=== PATIENT | female | born 1975 | race Native Hawaiian/Other Pacific Islander ===

== ENCOUNTER → 2016-10-17 | Outpatient (CLI) | payer OTHER ==
--- NOTE | 2016-10-17 16:06 | REPMRS ---
Patient History The patient states she had a clinical breast exam in September 2016.No known family history of cancer. Digital Mammo Screening Bilat: October 17, 2016 - Exam #: [id number] Bilateral CC and MLO view(s) were taken. Technologist: April Marie Technologist FINDINGS: The breast tissue is heterogeneously dense. This may lower the sensitivity of mammography. Baseline mammogram. Implant included and displaced views provided for all four projections. There is a moderate amount of residual fibroglandular tissue which is fairly symmetric. There is no dominant mass, architectural distortion, or clustered microcalcification typical of malignancy. There are scattered, small, benign calcifications of doubtful clinical significance. Scattered lymph nodes are seen in the axillae. ASSESSMENT: BI-RADS/ACR category 2 mammogram. Benign finding(s). Recommendation Routine screening mammogram in 1 year (for women over age 40). This mammogram was interpreted with the aid of an FDA-approved computer-aided dectection system. A. Negative x-ray reports should not delay biopsy if a dominant or clinically suspicious mass is present. B. Four to eight percent of cancers are not identified by mammography. C. Adenosis and dense breast may obscure an underlying neoplasm. Electronically Signed By: Gian Sen MD 10/17/16 0191
== END ==
LOC: M RAD 13:51
PROVIDERS: ATTEND Family Medicine
DX: Z12.31 Encounter for screening mammogram for malignant neoplasm of breast (principal); D24.9 Benign neoplasm of unspecified breast

== ENCOUNTER → 2016-12-13 | Outpatient (CLI) | payer OTHER ==
--- NOTE | 2016-12-13 15:33 | REP ---
HYSTEROSONOGRAPHY: History: Infertility. Findings: Pre-procedure transvaginal sonography demonstrates normal size uterus with dimensions of 9.2 x 4.7 x 5.6 cm. Endometrial echo is 0.7 cm thick and unremarkable. Normal ovaries are seen. Right ovary measures 2.8 x 2.2 x 1.8 cm. Left ovary measures 2.5 x 0.9 x 2.5 cm. Resistive index is normal in the right ovary at 0.63. Normal Doppler flow is seen in the left ovary. Hysterosonography is performed after the endometrium is cannulated by the attending professor of physical education Dr. Smith. During saline injection, a linear echogenic focus is seen in the fundus of the endometrium consistent with synechia. No other abnormality. Impression: Linear echogenic focus spans the endometrium on Hysterosonography images consistent with endometrial synechia. Signed by Gene Bynum MD 12/13/2016 03:50 P
== END ==
LOC: M RADPRO 11:51
PROVIDERS: ATTEND Obstetrics & Gynecology
DX: N97.9 Female infertility, unspecified (principal)

== ENCOUNTER 2017-04-23 11:48 | Inpatient (IN) | payer OTHER ==
[~2017-04-23] VITALS: Ht 154.9 cm; Wt 72.5 kg
[2017-04-23] MEDS ORDERED: LUNE1TAB5 PO (11:56)
[2017-04-23] MEDS ORDERED: TOPA100T12 PO (11:56)
[2017-04-23] MEDS ORDERED: LEXA1TAB2 PO (11:56)
[2017-04-23] MEDS ORDERED: ADDE20CA3 PO (11:56)
[2017-04-23] MEDS ORDERED: FLON1SPR (16:10)
[2017-04-23] MEDS ORDERED: ADDE1TAB14 PO (16:10)
[2017-04-23] MEDS ORDERED: LUNE2TAB23 PO (16:10)
[2017-04-23] MEDS ORDERED: PREG50CA PO (16:10)
[2017-04-23] MEDS ORDERED: CELE100C PO (16:10)
[2017-04-23] MEDS ORDERED: CETI10TA PO (16:10)
[2017-04-23] MEDS ORDERED: ALBU17IN INH (16:18)
[2017-04-23] MEDS ORDERED: ESZO1TAB3 PO (16:18)
[2017-04-23 17:26] VITALS: BP 120/77
[2017-04-23] MEDS ORDERED: MAALOX 30 ML SUSP *UDC PO PRN (19:30)
[2017-04-23] MEDS ORDERED: ALBUTEROL 90 MCG/ACT 8GM HFA INHALER INH PRN (19:30)
[2017-04-23] MEDS ORDERED: ACETAMINOPHEN TAB 650MG DOSE (2X325MG) PO PRN (19:30)
[2017-04-23] MEDS ORDERED: MOM 30ML SUSPENSION UDC PO PRN (19:30)
[2017-04-23] MEDS: TOPIRAMATE (TopAMAX) 100 MG TAB PO SCH (20:17)
[2017-04-23] MEDS: FLUTICASONE PROP 0.05% NASAL SPRAY 16 GM (FLONASE) SCH (21:20)
[2017-04-23] MEDS: traZODone 50 MG TAB PO PRN (21:20)
[2017-04-23] MEDS: PREGABALIN 50 MG CAP (LYRICA) PO SCH (21:20)
[2017-04-24 06:28] VITALS: BP 97/54
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
[2017-04-24] MEDS: ADDERALL 5 MG TAB PO SCH (09:00)
[2017-04-24] MEDS: CelecoXIB (CeleBREX) 100 MG CAP PO SCH (09:56)
[2017-04-24] MEDS: PREGABALIN 50 MG CAP (LYRICA) PO SCH ×3 (09:56→21:22)
[2017-04-24] MEDS: CETIRIZINE (ZyrTEC) 10 MG TAB PO SCH (09:56)
[2017-04-24] MEDS: ESCITALOPRAM OXALATE 10 MG TAB (LEXAPRO) PO SCH (09:56)
[2017-04-24] MEDS: FLUTICASONE PROP 0.05% NASAL SPRAY 16 GM (FLONASE) SCH ×2 (09:56→21:22)
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
[2017-04-24 18:00] VITALS: BP 90/60
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
[2017-04-24] MEDS: traZODone 50 MG TAB PO PRN (21:22)
[2017-04-24] MEDS: TOPIRAMATE (TopAMAX) 100 MG TAB PO SCH (21:22)
[2017-04-25 06:38] VITALS: BP 99/58
[2017-04-25] MEDS: FLUTICASONE PROP 0.05% NASAL SPRAY 16 GM (FLONASE) SCH ×2 (08:00→21:55)
[2017-04-25] MEDS: ADDERALL 5 MG TAB PO SCH (08:00)
[2017-04-25] MEDS: ESCITALOPRAM OXALATE 10 MG TAB (LEXAPRO) PO SCH (08:00)
[2017-04-25] MEDS: CelecoXIB (CeleBREX) 100 MG CAP PO SCH (08:00)
[2017-04-25] MEDS: CETIRIZINE (ZyrTEC) 10 MG TAB PO SCH (08:00)
[2017-04-25] MEDS: PREGABALIN 50 MG CAP (LYRICA) PO SCH (08:00)
[2017-04-25] MEDS: PERCOCET 5MG/325MG TAB PO PRN ×2 (14:53→21:45)
[2017-04-25] MEDS: diphenhydrAMINE 50 MG CAP PO PRN (15:07)
[2017-04-25] MEDS: DOCUSATE SODIUM 100 MG CAP PO SCH ×2 (15:07→21:43)
--- NOTE | 2017-04-25 15:17 | MHIPNPDOC ---
[facility] Progress Note Progress Note DATE OF SERVICE: 04/25/17 HISTORY: Patient was admitted yesterday due to worsening symptoms of depression after patient's reported that patient made self-harm statements. Patient was drinking alcohol and had taken several pills of Lunesta in order to fall asleep. She continues to deny Any intentions of self harm and that she tried to hurt herself by taking an overdose of alcohol and sleeping pills. Reported feeling better today. However, she continues having chronic pain. Percocet was added to the medication regimen, patient denied any symptoms of PTSD, however, knocking on her bedroom door were exacerbating her and make her very anxious. Patient denied any ideas of self-harm. Patient is tolerating medications well without any side effects. VITAL SIGNS: See below. NEW TEST RESULTS: . No new test results CURRENT MEDICATIONS: See below. MENTAL STATUS EXAMINATION: General appearance: Patient is a 41 years old, female, casually dressed with good grooming and hygiene looks stated age Speech: . Fluent and coherent in [place] Thought processes: . linear goal directed Thought content: . No suicidal or homicidal ideas. No delusions elicited. No perceptual disturbances Abstract reasoning and computation: . Intact Description of associations: . Adequate Description of abnormal or psychotic thoughts: . Psychosis Judgment: . Fair Insight: . Good Orientation: . The attempted time, place and person Recent and remote memory: . Intact Attention span and concentration: . Adequate Fund of knowledge: . Adequate Mood: "Better." Affect: Range. DIAGNOSES: 1. . Depressive disorder, NOS. Rule out substance-induced mood disorder 2. . PTSD 3. . Alcohol abuse versus dependence ASSESSMENT: 41 years old, female that was admitted with worsening symptoms of depression, anxiety, inability to function on report that self-harm behavior after taking overdose of alcohol with sleeping pills. However, patient gives denying any ideas or intentions of self harm. Patient is tolerating medications without side effects, complaining of chronic pain exacerbation recommendations from pain management were followed and medications were adjusted accordingly. Patient will continue current medications and will begin discharge plan that includes psychopharmacology and intensive psychotherapy for anxiety, PTSD and depression MANAGEMENT PLAN: . Continue medications including Lexapro, Lyrica, Percocet for pain Supportive therapy, milieu therapy, group therapy Family meeting and discharge plan TIME SPENT: 25 minutes. Vital Signs Vital Signs Date Time Temp Pulse Resp B/P (MAP) Pulse Ox O2 Delivery O2 Flow Rate FiO2 04/25/17 14:53 16 04/25/17 06:38 97.7 57 99/58 (72) 04/24/17 06:28 Room Air 04/23/17 17:26 100 Current Medications Current Medications Acetaminophen (Tylenol Tab) 650 mg Q6HP PRN PO HEADACHE or DISCOMFORT; Start 04/23/17 at 19:30; Stop 05/23/17 at 19:29 Al Hydrox/Mg Hydrox/Simethicone (Mylanta) 30 ml Q4HP PRN PO HEARTBURN/ INDIGESTION; Start 04/23/17 at 19:30; Stop 05/23/17 at 19:29 Albuterol Sulfate (Proventil, Ventolin Hfa) 2 puff QIDP PRN INH SHORTNESS OF BREATH Last administered on 04/25/17 08:20; Start 04/23/17 at 19:30; Stop 05/23 at 19:29 Amphetamine/ Dextroamphetamine (Adderall) 20 mg QAM PO ; Start 04/24/17 at 09:00 ; Stop 05/01/17 at 08:59 Celecoxib (CeleBREX) 100 mg DAILY PO Last administered on 04/25/17 08:00; Start 04/24/17 at 09:00; Stop 05/24/17 at 08:59 Cetirizine HCl (ZyrTEC) 10 mg DAILY PO Last administered on 04/25/17 08:00; Start 04/24/17 at 09:00; Stop 05/24/17 at 08:59 Diphenhydramine HCl (Benadryl) 50 mg Q6HP PRN PO ITCHING; Start 04/25/17 at 15: 00; Stop 05/25/17 at 14:59 Docusate Sodium (Colace) 100 mg TID PO ; Start 04/25/17 at 16:00; Stop 05/25/17 at 15:59 Escitalopram Oxalate (Lexapro) 20 mg DAILY PO Last administered on 04/25/17 08 :00; Start 04/24/17 at 09:00; Stop 05/24/17 at 08:59 Fluticasone Propionate (Flonase 0.05% Nasal [place]) 1 spray BID NA Last administered on 04/25/17 08:00; Start 04/23/17 at 21:00; Stop 05/23/17 at 20:59 Home Med (Med Rec Complete!) ASDIRECTED XX ; Start 04/23/17 at 16:30; Stop 04/23/17 at 16:30; Status DC Magnesium Hydroxide (Milk Of Magnesia) 30 ml DAILYPRN PRN PO CONSTIPATION; Start 04/23/17 at 19:30; Stop 05/23/17 at 19:29 Oxycodone/ Acetaminophen (Percocet 5mg/ 325mg Tablet) 1 tab Q4HP PRN PO MILD/ MODERATE PAIN (PS 1-7) Last administered on 04/25/17 14:53; Start 04/25/17 at 13:30; Stop 05/02/17 at 13:29 Pregabalin (Lyrica) 50 mg TID PO Last administered on 04/25/17 08:00; Start 04/23/17 at 21:00; Stop 04/25/17 at 21:00 Topiramate (TopAMAX) 100 mg QHS PO Last administered on 04/24/17 21:22; Start 04/23/17 at 21:00; Stop 05/23/17 at 20:59 Trazodone HCl (Desyrel) 50 mg QHSP PRN PO INSOMNIA Last administered on 21:22; Start 04/23/17 at 21:00; Stop 05/23/17 at 20:59 Allergies Coded Allergies: Aspirin (Verified Allergy, Unknown, 04/23/17) JULIANNA ORTEGA MD Apr 25, 2017 15:17
[2017-04-25] MEDS: PREGABALIN 100 MG CAP (LYRICA) PO SCH ×2 (16:08→21:43)
[2017-04-25 18:53] VITALS: BP 100/56
[2017-04-25] MEDS: TOPIRAMATE (TopAMAX) 100 MG TAB PO SCH (21:43)
[2017-04-25] MEDS: traZODone 50 MG TAB PO PRN (21:43)
[2017-04-26 06:57] VITALS: BP 92/50
[2017-04-26] MEDS: CelecoXIB (CeleBREX) 100 MG CAP PO SCH (08:18)
[2017-04-26] MEDS: ADDERALL 5 MG TAB PO SCH (08:18)
[2017-04-26] MEDS: CETIRIZINE (ZyrTEC) 10 MG TAB PO SCH (08:18)
[2017-04-26] MEDS: FLUTICASONE PROP 0.05% NASAL SPRAY 16 GM (FLONASE) SCH ×2 (08:18→21:23)
[2017-04-26] MEDS: DOCUSATE SODIUM 100 MG CAP PO SCH ×3 (08:18→21:00)
[2017-04-26] MEDS: PREGABALIN 100 MG CAP (LYRICA) PO SCH ×3 (08:18→21:23)
[2017-04-26] MEDS: ESCITALOPRAM OXALATE 10 MG TAB (LEXAPRO) PO SCH (08:19)
[2017-04-26] MEDS ORDERED: INFLUENZA QUADRIVALENT PF VACCINE 0.5ML SYRINGE (90686) IM ONE (09:00)
[2017-04-26] MEDS: PERCOCET 5MG/325MG TAB PO PRN ×3 (09:50→21:41)
--- NOTE | 2017-04-26 10:34 | MHIPNPDOC ---
[facility] Progress Note Progress Note DATE OF SERVICE: 04/26/17 HISTORY: Patient was due to worsening symptoms of depression after patient's reported that patient made self-harm statements. Patient was drinking alcohol and had taken several pills of Lunesta in order to fall asleep. Reported not having depressive symptoms , however her chronic pain makes her tearful and with depressed mood, no ideas of self harm. However, she continues having chronic pain. Percocet was added to the medication regimen, patient denied any symptoms of PTSD. Antidepressant will be changed to cymbalta 60 mg daily as can help with pain , specially if there is a neuropathic component to it. Patient is tolerating medications well without any side effects. VITAL SIGNS: See below. NEW TEST RESULTS: . No new test results CURRENT MEDICATIONS: See below. MENTAL STATUS EXAMINATION: General appearance: Patient is a 41 years old, female, casually dressed with good grooming and hygiene looks stated age Speech: . Fluent and coherent in [place] Thought processes: . linear goal directed Thought content: . No suicidal or homicidal ideas. No delusions elicited. No perceptual disturbances Abstract reasoning and computation: . Intact Description of associations: . Adequate Description of abnormal or psychotic thoughts: . Psychosis Judgment: . Fair Insight: . Good Orientation: . The attempted time, place and person Recent and remote memory: . Intact Attention span and concentration: . Adequate Fund of knowledge: . Adequate Mood: "Better." Affect: Range. DIAGNOSES: 1. . Depressive disorder, NOS. Rule out substance-induced mood disorder 2. . PTSD 3. . Alcohol abuse versus dependence ASSESSMENT: 41 years old, female that was admitted with worsening symptoms of depression, anxiety, inability to function on report that self-harm behavior after taking overdose of alcohol with sleeping pills. However, patient gives denying any ideas or intentions of self harm. Patient is tolerating medications without side effects, complaining of chronic pain exacerbation recommendations from pain management were followed and medications were adjusted accordingly. Patient will continue current medications and will begin discharge plan that includes psychopharmacology and intensive psychotherapy for anxiety, PTSD and depression MANAGEMENT PLAN: . Continue medications for pain: lyrica, celebrex and increased percocet to 2 pills every 4 hours as needed for pain. Discontinue lexapro, start cymbalta 60 mg daily Supportive therapy, milieu therapy, group therapy Family meeting and discharge plan; patient wants to go home [place] TIME SPENT: 25 minutes. Vital Signs Vital Signs Date Time Temp Pulse Resp B/P (MAP) Pulse Ox O2 Delivery O2 Flow Rate FiO2 04/26/17 09:50 20 04/26/17 06:57 98.0 65 92/50 (64) Room Air 04/23/17 17:26 100 Current Medications Current Medications Acetaminophen (Tylenol Tab) 650 mg Q6HP PRN PO HEADACHE or DISCOMFORT; Start 04/23/17 at 19:30; Stop 05/23/17 at 19:29 Al Hydrox/Mg Hydrox/Simethicone (Mylanta) 30 ml Q4HP PRN PO HEARTBURN/ INDIGESTION; Start 04/23/17 at 19:30; Stop 05/23/17 at 19:29 Albuterol Sulfate (Proventil, Ventolin Hfa) 2 puff QIDP PRN INH SHORTNESS OF BREATH Last administered on 04/25/17 08:20; Start 04/23/17 at 19:30; Stop 05/23 at 19:29 Amphetamine/ Dextroamphetamine (Adderall) 20 mg QAM PO Last administered on 08:18; Start 04/24/17 at 09:00; Stop 05/01/17 at 08:59 Celecoxib (CeleBREX) 100 mg DAILY PO Last administered on 04/25/17 08:00; Start 04/24/17 at 09:00; Stop 04/25/17 at 15:10; Status DC Celecoxib (CeleBREX) 200 mg DAILY PO Last administered on 04/26/17 08:18; Start 04/26/17 at 09:00; Stop 05/26/17 at 08:59 Cetirizine HCl (ZyrTEC) 10 mg DAILY PO Last administered on 04/26/17 08:18; Start 04/24/17 at 09:00; Stop 05/24/17 at 08:59 Diphenhydramine HCl (Benadryl) 50 mg Q6HP PRN PO ITCHING Last administered on 04/25/17 15:07; Start 04/25/17 at 15:00; Stop 05/25/17 at 14:59 Docusate Sodium (Colace) 100 mg TID PO Last administered on 04/26/17 08:18; Start 04/25/17 at 16:00; Stop 05/25/17 at 15:59 Escitalopram Oxalate (Lexapro) 20 mg DAILY PO Last administered on 04/26/17 08 :19; Start 04/24/17 at 09:00; Stop 05/24/17 at 08:59 Fluticasone Propionate (Flonase 0.05% Nasal [place]) 1 spray BID NA Last administered on 04/26/17 08:18; Start 04/23/17 at 21:00; Stop 05/23/17 at 20:59 Home Med (Med Rec Complete!) ASDIRECTED XX ; Start 04/23/17 at 16:30; Stop 04/23/17 at 16:30; Status DC Magnesium Hydroxide (Milk Of Magnesia) 30 ml DAILYPRN PRN PO CONSTIPATION; Start 04/23/17 at 19:30; Stop 05/23/17 at 19:29 Oxycodone/ Acetaminophen (Percocet 5mg/ 325mg Tablet) 1 tab Q4HP PRN PO MILD/ MODERATE PAIN (PS 1-7) Last administered on 04/26/17 09:50; Start 04/25/17 at 13:30; Stop 04/26/17 at 10:25; Status DC Oxycodone/ Acetaminophen (Percocet 5mg/ 325mg Tablet) 2 tab Q4HP PRN PO MILD/ MODERATE PAIN (PS 1-7); Start 04/26/17 at 10:30; Stop 05/03/17 at 10:29; Status UNV Pregabalin (Lyrica) 50 mg TID PO Last administered on 04/25/17 08:00; Start 04/23/17 at 21:00; Stop 04/25/17 at 15:10; Status DC Pregabalin (Lyrica) 100 mg TID PO Last administered on 04/26/17 08:18; Start 04/25/17 at 16:00; Stop 05/02/17 at 15:59 Topiramate (TopAMAX) 100 mg QHS PO Last administered on 04/25/17 21:43; Start 04/23/17 at 21:00; Stop 05/23/17 at 20:59 Trazodone HCl (Desyrel) 50 mg QHSP PRN PO INSOMNIA Last administered on 21:43; Start 04/23/17 at 21:00; Stop 05/23/17 at 20:59 Allergies Coded Allergies: Aspirin (Verified Allergy, Unknown, 04/23/17) JULIANNA ORTEGA MD Apr 26, 2017 10:27
[2017-04-26] MEDS: DULoxetine 30 MG CAP (CYMBALTA) PO SCH (11:09)
[2017-04-26 18:00] VITALS: BP 114/71
[2017-04-26] MEDS: TOPIRAMATE (TopAMAX) 100 MG TAB PO SCH (21:23)
[2017-04-26] MEDS: traZODone 50 MG TAB PO PRN (21:23)
[2017-04-27 06:20] VITALS: BP 98/55
[2017-04-27] MEDS: DOCUSATE SODIUM 100 MG CAP PO SCH (08:33)
[2017-04-27] MEDS: CelecoXIB (CeleBREX) 100 MG CAP PO SCH (08:36)
[2017-04-27] MEDS: PREGABALIN 100 MG CAP (LYRICA) PO SCH (08:36)
[2017-04-27] MEDS: ADDERALL 5 MG TAB PO SCH (08:36)
[2017-04-27] MEDS: FLUTICASONE PROP 0.05% NASAL SPRAY 16 GM (FLONASE) SCH (08:36)
[2017-04-27] MEDS: CETIRIZINE (ZyrTEC) 10 MG TAB PO SCH (08:37)
[2017-04-27] MEDS: diphenhydrAMINE 50 MG CAP PO PRN (08:37)
[2017-04-27] MEDS: PERCOCET 5MG/325MG TAB PO PRN (08:37)
[2017-04-27] MEDS: DULoxetine 30 MG CAP (CYMBALTA) PO SCH (08:37)
[2017-04-27] MEDS ORDERED: PERCOCET PO (12:28)
[2017-04-27] MEDS ORDERED: DIPH50CA PO (12:28)
[2017-04-27] MEDS ORDERED: FLUTISP (12:28)
[2017-04-27] MEDS ORDERED: COLA100C5 PO (12:28)
[2017-04-27] MEDS ORDERED: DULO30CA PO (12:28)
[2017-04-27] MEDS ORDERED: CELE100C PO (12:28)
[2017-04-27] MEDS ORDERED: TOPA100T12 PO (12:28)
[2017-04-27] MEDS ORDERED: CETI10TA PO (12:28)
[2017-04-27] MEDS ORDERED: TRAZO50TA PO (12:28)
[2017-04-27] MEDS ORDERED: Amphetamine/Dextroamphetamine PO (12:28)
[2017-04-27] MEDS ORDERED: PREG100CA PO (12:28)
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
== END 2017-04-27 12:40 | disposition home or self-care (01) | DRG 885 ==
LOC: M ED 11:48 → M ED INP 16:21 → M PSY 17:23
PROVIDERS: ADMIT Psychiatry & Neurology Psychiatry; ATTEND Psychiatry & Neurology Psychiatry
DX: F33.9 Major depressive disorder, recurrent, unspecified (principal); F10.10 Alcohol abuse, uncomplicated; F19.94 Other psychoactive substance use, unspecified with psychoactive substance-induced mood disorder; F43.10 Post-traumatic stress disorder, unspecified; Z79.899 Other long term (current) drug therapy; Z88.6 Allergy status to analgesic agent; M54.5 Low back pain; J45.909 Unspecified asthma, uncomplicated; F41.9 Anxiety disorder, unspecified; G43.909 Migraine, unspecified, not intractable, without status migrainosus; G89.29 Other chronic pain; R10.9 Unspecified abdominal pain

== ENCOUNTER → 2017-08-08 | Outpatient (REF) | LOC: M SMT 13:28 | DX: Z02.71 Encounter for disability determination (principal) ==